=== PATIENT | female | born 1930 | race Caucasian/White ===

== ENCOUNTER → 2016-10-16 | Outpatient (CLI) | payer MEDICARE, BC ==
[~2016-10-16] MED LIST: APRESOLINE-DPS10 MG PO; ASA325 MG PO; ATARAX-DPS25 MG PO; COLACE100 MG PO; DIOVAN80 MG PO; HALDOL-DPS1 MG PO; MAALOX DPS30 ML PO; NITROSTAT0.4 MG SL; NORVASC DPS10 MG PO; OMEPRAZOLE20 M1 PO; SURFAK240 MG PO; TEARS NATURAL D15 ML OU; TOPROL XL DPS50 MG PO; VESICARE5 MG PO; [UNRECOGNIZED DRUG - OTHER] PO
== END | disposition home or self-care (01) ==
LOC: RAD.S 09:35
DX: Z12.31 Encounter for screening mammogram for malignant neoplasm of breast (principal)